=== PATIENT | female | born 1990 | race Caucasian/White ===

== ENCOUNTER 2018-09-01 10:50 | Inpatient (IN) ==
[2018-09-02] MEDS ORDERED: ZOFRAN ODT PO PRN (15:32)
[2018-09-02] MEDS ORDERED: PHENOBARBITAL IV PRN (15:32)
[2018-09-02] MEDS ORDERED: SENOKOT PO PRN (15:32)
[2018-09-02] MEDS ORDERED: ZOFRAN IV PRN (15:32)
[2018-09-02] MEDS ORDERED: MAALOX PLUS LIQUID PO PRN (15:32)
[2018-09-02] MEDS ORDERED: DULCOLAX PR PRN (15:32)
[2018-09-02] MEDS ORDERED: ZOFRAN IM PRN (15:32)
[2018-09-02] MEDS ORDERED: MOTRIN PO PRN (15:32)
[2018-09-02] MEDS ORDERED: D5W 1,000 ML IV PRN (15:32)
[2018-09-02] MEDS ORDERED: IMODIUM PO PRN ×2 (15:32)
[2018-09-02] MEDS ORDERED: DESYREL PO PRN (15:32)
[2018-09-02] MEDS ORDERED: TUBERSOL ID ONE (15:32)
[2018-09-02] MEDS ORDERED: NICOTINE GUM BUCCAL PRN (15:32)
[2018-09-02] MEDS ORDERED: TYLENOL PO PRN (15:32)
[2018-09-02] MEDS ORDERED: BENTYL PO PRN (16:11)
[2018-09-02] MEDS ORDERED: ROBAXIN PO PRN (16:11)
[2018-09-02] MEDS ORDERED: SINEMET 25/100 PO PRN (16:11)
[2018-09-02 16:15] LABS: HEMOGLOBIN 10.6 g/dL (12.0-16.0); MCH 26.6 PG (27-31); MCHC 32.1 g/dL (33-37); MCV 82.9 FL (81-99); MPV 10.3 FL (7.4-10.4); RBC 3.98 XMIL (4.2-5.4); RDW 15.5 % (11.5-14.5); WBC 8.38 X1000 (4.8-10.8)
[2018-09-02 16:32] LABS: URINE SOURCE CLEAN CATCH
[2018-09-02 16:33] LABS: AGAP 12; ALBUMIN 4.4 g/dL (3.5-5.0); ALKALINE PHOSPHATASE 60 U/L (32-104); AMYLASE 47 U/L (20-200); BUN 7 mg/dL (8-22); CALCIUM 8.9 mg/dL (8.8-10.2); CHLORIDE 106 mmol/L (98-107); COSMO 280; CREATININE 0.5 mg/dL (0.5-0.9); ESTIMATED GFR > 60; GLUCOSE 116 mg/dL (70-104); GOT 21 U/L (10-30); GPT 17 U/L (10-36); LIPASE 21 U/L (13-60); POTASSIUM 4.1 mmol/L (3.5-5.1); SODIUM 141 mmol/L (136-145); TCO2 24 mmol/L (25-35); TOTAL PROTEIN 7.4 g/dL (6.3-8.3)
[2018-09-02 16:39] LABS: BILIRUBIN URINE NEGATIVE (NEGATIVE); BLOOD URINE TRACE (NEGATIVE); CLARITY CLEAR (CLEAR); COLOR YELLOW; GLUCOSE URINE NEGATIVE (NEGATIVE); KETONE URINE NEGATIVE (NEGATIVE); LEUKOCYTES URINE NEGATIVE (NEGATIVE); NITRITE URINE NEGATIVE (NEGATIVE); PROTEIN URINE NEGATIVE (NEGATIVE); UROBILINOGEN URINE NORMAL
[2018-09-02 16:41] LABS: URINE BACTERIA 1+ /HFP; URINE EPITHELIAL CELLS >10 /HPF (<10); URINE RBC <10 /HPF (<10); URINE WBC <10 /HPF (<10); URINE YEAST NONE SEEN /HPF
[2018-09-02 16:42] LABS: URINE CAST NONE SEEN /LPF; URINE CRYSTAL NONE SEEN /HPF
[2018-09-02 16:51] LABS: UR AMPHETAMINES QUAL PRESUMPTIVE POSITIVE (NONE DETECT); UR BARBITUATES QUAL NONE DETECTED (NONE DETECT); UR BENZODIAZEPIN QUAL PRESUMPTIVE POSITIVE (NONE DETECT); UR CANNABINOIDS QUAL NONE DETECTED (NONE DETECT); UR COCAINE QUAL NONE DETECTED (NONE DETECT); UR METHADONE QUAL NONE DETECTED (NONE DETECT); UR METHAMPHETAMINE QUAL PRESUMPTIVE POSITIVE (NONE DETECT); UR OPIATES QUAL NONE DETECTED (NONE DETECT); UR OXYCODONE QUAL NONE DETECTED (NONE DETECT); UR PCP QUAL NONE DETECTED (NONE DETECT); UR PROPOXYPHENE QUAL NONE DETECTED (NONE DETECT); UR TCA QUAL NONE DETECTED (NONE DETECT)
[2018-09-02] MEDS: NICODERM PATCH TD PRN (17:14)
[2018-09-02] MEDS: LIBRIUM PO PRN (17:14)
[2018-09-02] MEDS: ATARAX PO PRN (17:14)
[2018-09-02] MEDS: SEROQUEL PO PRN (21:18)
[2018-09-03] MEDS: LIBRIUM PO PRN ×2 (01:32→11:01)
[2018-09-03] MEDS: ATARAX PO PRN ×3 (01:32→23:39)
[2018-09-03] MEDS: PROTONIX PO SCH (06:05)
[2018-09-03] MEDS: THERA M PLUS PO SCH (08:43)
[2018-09-03] MEDS: FOLIC ACID PO SCH (08:43)
[2018-09-03] MEDS: VITAMIN B-1 PO SCH (08:43)
[2018-09-03] MEDS: SUBOXONE 2 MG/0.5 MG FILM SL SCH ×2 (08:43→20:48)
[2018-09-03] MEDS: NICODERM PATCH TD PRN (12:32)
[2018-09-03] MEDS: SEROQUEL PO PRN (20:48)
--- NOTE | 2018-09-04 00:30 | PROGRESS NOTE ---
DATE: 09/03/2018 SUBJECTIVE: Patient notes that she is feeling a little bit better. Still having muscle aches and some mild paresthesias. Notes still does not feel quite back to normal. PHYSICAL EXAMINATION: Vital Signs: Reviewed, temperature 97.9 degrees, pulse 72, respiratory 18, BP 111/70. General: Patient is awake, alert, very pleasant to talk with. She is in no current respiratory distress. HEENT: Normocephalic. Neck: Supple. Cardiovascular: Regular rate. Chest: Clear. Abdomen: Soft, nondistended. Extremities: Moves all extremities. ASSESSMENT: 1. Nausea, vomiting. 2. Abdominal pain. 3. Myalgias. 4. Paresthesias. 5. Paroxysmal sweating. 6. Opiate abuse, withdrawal and stabilization. 7. Chronic anxiety and depression. PLAN: Discussed with patient she needs to continue working on changing her environment as well as her life choices. We will continue Suboxone. We will continue counseling. Further orders as needed. cc: Juan Antonio Durán MD
[2018-09-04] MEDS: PROTONIX PO SCH (06:11)
[2018-09-04 07:56] VITALS: BP 107/66
[2018-09-04] MEDS: VITAMIN B-1 PO SCH (08:22)
[2018-09-04] MEDS: SUBOXONE 2 MG/0.5 MG FILM SL SCH (08:22)
[2018-09-04] MEDS: FOLIC ACID PO SCH (08:22)
[2018-09-04] MEDS: THERA M PLUS PO SCH (08:22)
--- NOTE | 2018-09-05 01:25 | DISCHARGE SUMMARY ---
ADMISSION DATE: 09/02/2018 DISCHARGE DATE: 09/05/2018 DISCHARGE DIAGNOSIS: 1. Nausea, vomiting. 2. Abdominal pain. 3. Myalgias. 4. Paresthesias. 5. Paroxysmal sweating. 6. Opiate abuse, withdrawal and stabilization with Suboxone. CONSULTATIONS: None. PROCEDURES: None. BRIEF HOSPITAL COURSE: The patient is a 28-year-old female who presented to [facility] program secondary to nausea, vomiting, abdominal pain, myalgias, paresthesias. She was treated in the usual fashion, placed on Suboxone. Counseling was performed each day by myself. Thankfully, she had an uneventful hospital course although her symptoms did continue to be problematic and she had to increase her Suboxone to 8/2 which seemed to alleviate her symptoms much better. DISPOSITION: Patient will be discharged home. She will follow up outpatient with treatment facility of choice. Discussed with patient that she needs to avoid all persons, places, situations which she has been using and abusing in the past. She needs outpatient life counseling as well as drug counseling. Greater than 30 minutes was spent in total care. cc: Juan Antonio Durán MD
== END 2018-09-04 16:40 | disposition home or self-care (01) | DRG 897 ==
LOC: P.DIRADM 09-02 14:55 → P.MEDSURG 09-02 15:12
PROVIDERS: ADMIT Family Medicine; ATTEND Family Medicine
CPT/HCPCS: 80053; 80104; 80301; 80305; 80307; 80320; 81001; 82055; 82150; 83690; 84703; 85027; 86580; A9270; G0431; G0434; G0477; G0480; G6040